=== PATIENT | male | born 1970 | race African-American/Black ===

== ENCOUNTER 2021-02-02 07:59 | Emergency (ER) | payer OTHER ==
[2021-02-02 08:16] VITALS: BP 127/68; PULSE 56; TEMP 97.6; BMI 27.3
[2021-02-02] MEDS ORDERED: IBUPROFEN 600 MG TABLET (FP) PO ONE ×2 (08:42→08:56)
== END 2021-02-02 09:40 | disposition home or self-care (01) ==
LOC: JER 07:59
DX: M25.521 Pain in right elbow (principal); W22.8XXA Striking against or struck by other objects, initial encounter; Y92.238 Other place in hospital as the place of occurrence of the external cause
CPT/HCPCS: 73070-TC-RT-FY; 99283-25

== ENCOUNTER 2021-11-30 19:27 | Emergency (ER) | payer OTHER ==
[2021-11-30 20:05] VITALS: BP 101/69; PULSE 62; TEMP 98.1; BMI 23.3
[2021-11-30] MEDS ORDERED: DIPHTH,PERTUSS(ACELL),TET 0.5 ML DISP.SYRIN IM ONE ×2 (20:07→20:11)
== END 2021-11-30 20:38 | disposition home or self-care (01) ==
LOC: JER 19:27
PROC: 3E0234Z Introduction of Serum, Toxoid and Vaccine into Muscle, Percutaneous Approach (ICD-10-PCS; principal; 2021-11-30)
DX: S61.210A Laceration without foreign body of right index finger without damage to nail, initial encounter (principal)
CPT/HCPCS: 90715; 99283-25